=== PATIENT | male | born 1965 | race Caucasian/White ===

== ENCOUNTER → 2021-07-27 15:50 | Outpatient (BNVA) | payer OTHER, SELFPAY | PROVIDERS: Visit Provider Nurse Practitioner Family | DX: R31.29 Other microscopic hematuria (principal) | CPT/HCPCS: 80053; 81003; 84153; 85025 ==

== ENCOUNTER → 2021-10-01 15:04 | Outpatient (BNVA) | payer SELFPAY | PROVIDERS: PCP Urology; Referring Provider Nurse Practitioner Family; Visit Provider Urology | DX: R31.9 Hematuria, unspecified (principal) | CPT/HCPCS: 81003 ==